=== PATIENT | male | born 1990 | race Caucasian/White ===

== ENCOUNTER 2025-03-18 09:54 | Emergency (ER) | payer MEDICAID ==
[2025-03-14 11:47] VITALS: O2SAT 95
[~2025-03-18] VITALS: Ht 182.9 cm; Wt 70.3 kg
[2025-03-18 09:57] VITALS: BP 130/79
[2025-03-18] MEDS ORDERED: HYDROCODONE/APAP 10-325 MG TABLET ONE (10:32)
[2025-03-18] MEDS ORDERED: MAG HYDROX/AL HYDROX/SIMETH 30 ML LIQUID UDC ONE (10:32)
[2025-03-18] MEDS: MAG HYDROX/AL HYDROX/SIMETH 30 ML LIQUID UDC PO ONE (10:35)
[2025-03-18] MEDS: HYDROCODONE/APAP 10-325 MG TABLET PO ONE (10:36)
[2025-03-18] MEDS ORDERED: ALBUTEROL SULFATE 2.5 MG/3 ML NEBU ONE ×2 (10:37→10:50)
[2025-03-18] MEDS ORDERED: IPRATROPIUM BROMIDE 0.5 MG/2.5 ML NEBU ONE (10:38)
[2025-03-18 10:47] VITALS: O2SAT 93
[2025-03-18] MEDS: IPRATROPIUM BROMIDE 0.5 MG/2.5 ML NEBU NEB ONE (10:47)
[2025-03-18] MEDS: ALBUTEROL SULFATE 2.5 MG/3 ML NEBU NEB ONE (10:48)
[2025-03-18 11:12] LABS: PLATELET COUNT (AUTO) 197 K/uL (152-348); RED BLOOD CELL COUNT(AUTO) 4.26 MIL/uL (4.06-5.63); RED CELL DISTRIBUTION WIDTH 15.0 % (12.1-16.2); WHITE BLOOD COUNT (AUTO) 10.8 K/uL (3.6-10.2)
[2025-03-18 11:17] LABS: CREATININE 0.7 mg/dL (0.6-1.3); SODIUM SERUM 143.0 mmol/L (136-145); UREA NITROGEN, BLOOD 14.0 mg/dL (7-18)
[2025-03-18] MEDS ORDERED: ALBU18HF2 INH (11:57)
[2025-03-18] MEDS ORDERED: PRED50TA PO (11:57)
[2025-03-18] MEDS ORDERED: DOXY-461 PO (11:57)
[2025-03-18] MEDS ORDERED: HYDR-3976 PO (11:57)
[2025-03-18] MEDS ORDERED: POTA25TA41 PO (11:57)
[2025-03-18 12:02] VITALS: BP 121/77; O2SAT 95
== END 2025-03-18 12:03 | disposition home or self-care (01) ==
LOC: ER 09:54
DX: J45.902 Unspecified asthma with status asthmaticus (principal); R51.9 Headache, unspecified; E87.6 Hypokalemia; Z79.52 Long term (current) use of systemic steroids
CPT/HCPCS: 99285; 71045; 80048; 85025; 36415; 94644; J7512; A4606; A4663; J3590